=== PATIENT | male | born 1940 | race African-American/Black ===

== ENCOUNTER 2016-10-10 14:56 | Emergency (ER) | payer OTHER ==
[~2016-10-10] VITALS: Ht 175.3 cm; Wt 56.0 kg
--- NOTE | 2016-10-10 15:14 | ED DYSPNEA/ASTHMA COMPLAINT ---
History of Present Illness General Chief Complaint: General Adult Stated Complaint: WEAKNESS,DIZZINESS,NOT BREATHING WELL Source: patient, family Exam Limitations: no limitations Vital Signs & Intake/Output Vital Signs & Intake/Output Vital Signs Date Time Temp Pulse Resp B/P B/P Pulse O2 O2 Flow FiO2 Mean Ox Delivery Rate 10/10 1804 57 18 189/88 100 Room Air 10/10 1800 98 Room Air Room Air 10/10 1507 98.2 60 15 137/77 98 Room Air Room Air Allergies Coded Allergies: No Known Allergies (10/10/16) Reconcile Medications Albuterol Sulfate (Ventolin Hfa) 90 MCG HFA.AER.AD 2 PUF INH Q4-6 PRN PRN SHORTNESS OF BREATH Aspirin (Ecotrin*) 81 MG TABLET.DR 1 TAB PO DAILY HEART/BLOOD (Reported) Bisoprolol Fumarate 5 MG TABLET 0.5 TAB PO DAILY UNKNOWN (Reported) Digoxin 250 MCG TABLET 0.25 TAB PO DAILY HEART (Reported) Furosemide (Lasix) 40 MG TABLET 1 TAB PO TID DIURETIC (Reported) Lisinopril 5 MG TABLET 1 TAB PO QPM BP (Reported) Metformin HCl 500 MG TABLET 1 TAB PO BID DM (Reported) Triage Note: PT TO TRIAGE WITH WEAKNESS AND TROUBLE BREATHING. PT HAS BEEN SLEEPING ALOT PER . PT DENIES PAIN, DENIES FEVERS. DENIES COUGH CURRENTLY BUT DID A WEEK AGO. SKIN WARM AND DRY. Triage Nurses Notes Reviewed? yes Onset: Gradual Duration: getting worse Timing: recent history Severity: moderate Activities at Onset: activity HPI: Patient is a 76-year-old male with a past medical history of CHF currently taking furosemide 3 times a day 40 mg, HTN, DMII, BLINDNESS who presents to emergency room with for concerns of dyspnea chills and shortness of breath. Patient in May was admitted for one day and [facility] for concerns of exacerbation of CHF however patient has been in the [place] for a few months now and which patient's residence he is in [place] however patient currently IS IN [place] visiting a family member for a surgical procedure. Patient states the last 2 days he's been complaining of shortness of breath and dyspnea on exertion with minimal physical activity. Patient does state that 2 weeks ago he had a cough, nonproductive however this has resolved. Patient has no fevers. Patient denies any chest pain hemoptysis arm pain jaw pain nausea vomiting leg swelling or weight gain. (BOOGIE GRECO) Past History Medical History Any Pertinent Medical History? see below for history Cardiovascular: CHF, hypertension Endocrine: diabetes Surgical History Surgical History: non-contributory Family History Hx Contributory? No (BOOGIE GRECO) Review of Systems Review of Systems Constitutional: Reports: see HPI. Denies: fever. EENTM: Reports: no symptoms. Respiratory: Reports: see HPI, short of breath. Denies: cough, hemoptysis, sputum production , stridor. Cardiovascular: Denies: chest pain, palpitations, peripheral edema. GI: Reports: no symptoms. Genitourinary: Reports: no symptoms. Musculoskeletal: Reports: no symptoms. Skin: Reports: no symptoms. Neurological/Psychological: Reports: no symptoms. Hematologic/Endocrine: Reports: no symptoms. Immunologic/Allergic: Reports: no symptoms. All Other Systems: Reviewed and Negative (BOOGIE GRECO) Physical Exam Physical Exam General Appearance: no apparent distress, alert, comfortable Head: atraumatic Ears, Nose, Throat: normal pharynx Neck: normal inspection Respiratory: chest non-tender, no respiratory distress, quiet respiration, decreased breath sounds Cardiovascular: regular rate/rhythm Peripheral Pulses: 2+ radial (R), 2+ radial (L) Gastrointestinal: normal bowel sounds, soft, non-tender Extremities: normal inspection, normal capillary refill, normal range of motion, no edema Neurologic/Psych: no motor/sensory deficits, awake, alert, oriented x 3 Skin: intact, normal color, warm/dry Core Measures ACS in differential dx? Yes Severe Sepsis Present: No Septic Shock Present: No (BOOGIE GRECO) Progress Differential Diagnosis: asthma, AMI, bronchitis, costochondritis, CHF, COPD, musculoskeletal pain, pericarditis, pulmonary embolism, pneumonia, pneumothorax, rib fracture, unstable angina Plan of Care: Orders Procedure Date/time Status D-DIMER 10/10 1531 Complete Telemetry/Heat Set Operator 10/10 1527 Active TROPONIN LEVEL 10/10 1527 Complete DIGOXIN 10/10 1527 Complete COMPREHENSIVE METABOLIC PANEL 10/10 1527 Complete CBC WITHOUT DIFFERENTIAL 10/10 1527 Complete B-TYPE NATRIURETIC PEP (BNP) 10/10 152 Complete EKG 10/10 1514 Active Laboratory Tests 10/10/16 1539: Anion Gap 10, Estimated GFR 59 L, BUN/Creatinine Ratio 8.3, Glucose 171 H, Calcium 8.9, Total Bilirubin 0.4, AST 25, ALT 40, Alkaline Phosphatase 33, Troponin I < 0.01, Lqg-[id number]-Kznrzaduspj Pept 1510 H, Total Protein 6.4, Albumin 3.6, Globulin 2.8, Albumin/Globulin Ratio 1.3, CBC w Diff NO MAN DIFF REQ, RBC 3.46 L, MCV 75.9 L, MCH 23.9 L, RDW 14.8 H, MPV 8.6, Gran % 51.6, Lymphocytes % 41.6, Monocytes % 3.4, Eosinophils % 3.3, Basophils % 0.1, Absolute Granulocytes 4.4, Absolute Lymphocytes 3.6 H, Absolute Monocytes 0.3, Absolute Eosinophils 0.3, Absolute Basophils 0, PUBS MCHC 31.5 L, Digoxin 0.5 L 10/10/16 1531: D-Dimer 509 H Patient on initial examination was resting comfortably at bedside no respiratory distress and patient denies any chest pain no concern of lower extremity edema Patient's blood work was essentially unremarkable however d-dimer was mildly elevated which a CT angiogram will be performed for rule out pulmonary embolism. Patient currently is resting comfortably Patient was noted to ambulate under my supervision with normal steady gait oxygenation room air started 97% and and after walking decreased to 95% no respiratory distress observed patient tolerated well 10/10/2016 5:36:47 PM again is resting comfortably at bedside no apparent distress Patient had negative results or concerns of pulmonary embolism after CT angiogram. Patient will be given an inhaler for concerns of mild emphysema noted on CT scan. Patient upon discharge has no complaints Discussed disposition plan with Dr. Carrasco who agrees (VIKKI SHERIDAN,BOOGIE) Diagnostic Imaging: Viewed by Me: Radiology Read, CT Scan. Radiology Impression: SEE COMMENTS Initial ED EKG: normal intervals, normal p-waves, 62 BPM, NSR Comments: PATIENT: JANA BUCRIAGA PRESENT AGE: 76 PATIENT ACCOUNT NO: [id number] : 41 LOCATION: [facility] ORDERING PHYSICIAN: BOOGIE SHERIDAN SERVICE DATE: 10/10/16 EXAM TYPE: CAT - CTA CHEST-PULMONARY EMBOLISM EXAMINATION: CT ANGIOGRAM OF THE CHEST WITH AND WITHOUT CONTRAST (CT PULMONARY ANGIOGRAM FOR PE) CLINICAL INFORMATION: Shortness of breath, dyspnea on exertion. Elevated D-dimer. COMPARISON: Chest radiographs done earlier the same day. TECHNIQUE: Prior to contrast administration, noncontrast localization images were obtained. Subsequently, multidetector volumetric imaging was performed from the thoracic inlet to below the diaphragms following the administration of 120 mL Optiray 350 intravenous contrast. No contrast reaction reported. Sagittal, coronal, and MIP oblique sagittal reformatted images were obtained on the CT workstation, uploaded to PACS, and reviewed. Total exam dose-length product 318.18 mGy-cm. FINDINGS: QUALITY OF STUDY/CONTRAST BOLUS: Satisfactory. PULMONARY ARTERIES: No central or segmental pulmonary emboli. THORACIC AORTA: No aneurysm or dissection. Atherosclerotic calcifications throughout the thoracic aorta. LUNG: No focal consolidation, nodules or masses. Mild bilateral emphysematous changes. PLEURA: No pleural effusion or pneumothorax. MEDIASTINUM: Normal heart size. No pericardial effusion. No hilar or mediastinal lymphadenopathy. No evidence of septal bowing or right heart strain. CHEST WALL/AXILLA: No axillary or internal mammary lymphadenopathy. OSSEOUS STRUCTURES: No acute or suspicious osseous abnormality. UPPER ABDOMEN: Unremarkable. There is reflux of contrast into the hepatic veins, which could suggest elevating right heart pressures. IMPRESSION: 1. No central or segmental pulmonary emboli. 2. Diffuse atherosclerotic calcifications throughout the thoracic aorta. 3. Reflux of contrast into the hepatic veins, which could suggest elevated right heart pressures. 4. Mild bilateral emphysematous changes. VTE: negative PATIENT: JANA BURCIAGA PRESENT AGE: 76 PATIENT ACCOUNT NO: [id number] : 41 LOCATION: [facility] ORDERING PHYSICIAN: BOOGIE SHERIDAN SERVICE DATE: 10/10/16 EXAM TYPE: RAD - XRY-CHEST XRAY, PA AND LATERAL EXAMINATION: XR CHEST CLINICAL INFORMATION: Shortness of breath. Dyspnea on exertion. Reported history of congestive heart failure. COMPARISON: No relevant prior studies are available for comparison. TECHNIQUE: 2 views of the chest were obtained. FINDINGS: No airspace consolidation. No pleural effusion or pneumothorax. No cardiomediastinal silhouette enlargement. Mild degenerative changes within the visualized thoracic spine and bilateral glenohumeral joints. IMPRESSION: Clear lungs. DICTATED BY: FARNAZ VILLAREAL MD DATE/TIME DICTATED:10/10/161556 SUPERVISOR [employer]INTING:TAYLOR DATE/TIME TRANSCRIBED:10/10/161556 (BOOGIE GRECO) Departure Departure Disposition: HOME OR SELF CARE Condition: Stable Clinical Impression Primary Impression: Dyspnea Additional Instructions: As discussed continue home medications as directed except that you should discontinue temporarily using metformin for the next 2 days then re-continue on Tuesday. Begin the prescription of Ventolin for shortness of breath. If symptoms worsen return to emergency room. When YOU return to [place] follow -up with your primary care doctor and please provide them with all reports provided to the emergency room. Departure Forms: Customer Survey General Discharge Information Prescriptions: Current Visit Scripts Albuterol Sulfate (Ventolin Hfa) 2 PUF INH Q4-6 PRN PRN SHORTNESS OF BREATH #1 INHAL (BOOGIE GRECO) PA/MANUFACTURING PROJECT ENGINEER Co-Sign Statement Statement: ED Attending supervision documentation- [X] I saw and evaluated the patient. I have also reviewed all the pertinent lab results and diagnostic results. I agree with the findings and the plan of care as documented in the PA's/MANUFACTURING PROJECT ENGINEER's documentation. [X] I have reviewed the ED Record and agree with the PA's/MANUFACTURING PROJECT ENGINEER's documentation. [] Additions or exceptions (if any) to the PAs/MANUFACTURING PROJECT ENGINEER's note and plan are summarized below: [] (RAHAT NATH,ELVIRA Chan) Critical Care Note Critical Care Note Critical Care Time: non-applicable (BOOGIE GRECO)
[2016-10-10 16:02] LABS: ABSOLUTE BASOPHIL COUNT 0 /CUMM (0.0-0.2); ABSOLUTE EOSINOPHIL COUNT 0.3 /CUMM (0.0-0.7); ABSOLUTE GRANULOCYTE CT 4.4 /CUMM (1.4-6.5); ABSOLUTE LYMPH COUNT 3.6 /CUMM (1.2-3.4); ABSOLUTE MONOCYTE COUNT 0.3 /CUMM (0.10-0.60); BASOPHIL % 0.1 % (0.0-2.0); EOSINOPHIL % 3.3 % (0-5); GRANULOCYTE % 51.6 % (42.2-75.2); HEMATOCRIT 26.2 % (42-52); MEAN CORPUSCULAR HGB 23.9 PG (27.0-31.0); MEAN CORPUSCULAR HGB CONC 31.5 G/DL (33.0-37.0); MEAN CORPUSCULAR VOLUME 75.9 FL (80.0-94.0); MEAN PLATELET VOLUME 8.6 FL (7.4-10.4); PLATELET COUNT 246 /CUMM (130-400); RBC DISTRIBUTION WIDTH 14.8 % (11.5-14.5); RED BLOOD CELL CT 3.46 /CUMM (4.70-6.10); WHITE BLOOD CELL COUNT 8.6 /CUMM (4.8-10.8)
--- NOTE | 2016-10-10 16:23 | RADIOLOGY REPORT ---
EXAMINATION: XR CHEST CLINICAL INFORMATION: Shortness of breath. Dyspnea on exertion. Reported history of congestive heart failure. COMPARISON: No relevant prior studies are available for comparison. TECHNIQUE: 2 views of the chest were obtained. FINDINGS: No airspace consolidation. No pleural effusion or pneumothorax. No cardiomediastinal silhouette enlargement. Mild degenerative changes within the visualized thoracic spine and bilateral glenohumeral joints. IMPRESSION: Clear lungs.
[2016-10-10] MEDS ORDERED: LASIX40 M1 PO (16:59)
[2016-10-10] MEDS ORDERED: LISINOPRIL5 M1 PO (17:00)
[2016-10-10] MEDS ORDERED: BISOPROLOL FUMAR5 M1 PO (17:01)
[2016-10-10] MEDS ORDERED: DIGOXIN250 MCG PO (17:03)
[2016-10-10] MEDS ORDERED: METFORMIN HCL500 M3 PO (17:03)
[2016-10-10] MEDS ORDERED: ASPIRIN EC81 M1 PO (17:03)
--- NOTE | 2016-10-10 17:58 | CT SCAN REPORT ---
EXAMINATION: CT ANGIOGRAM OF THE CHEST WITH AND WITHOUT CONTRAST (CT PULMONARY ANGIOGRAM FOR PE) CLINICAL INFORMATION: Shortness of breath, dyspnea on exertion. Elevated D-dimer. COMPARISON: Chest radiographs done earlier the same day. TECHNIQUE: Prior to contrast administration, noncontrast localization images were obtained. Subsequently, multidetector volumetric imaging was performed from the thoracic inlet to below the diaphragms following the administration of 120 mL Optiray 350 intravenous contrast. No contrast reaction reported. Sagittal, coronal, and MIP oblique sagittal reformatted images were obtained on the CT workstation, uploaded to PACS, and reviewed. Total exam dose-length product 318.18 mGy-cm. FINDINGS: QUALITY OF STUDY/CONTRAST BOLUS: Satisfactory. PULMONARY ARTERIES: No central or segmental pulmonary emboli. THORACIC AORTA: No aneurysm or dissection. Atherosclerotic calcifications throughout the thoracic aorta. LUNG: No focal consolidation, nodules or masses. Mild bilateral emphysematous changes. PLEURA: No pleural effusion or pneumothorax. MEDIASTINUM: Normal heart size. No pericardial effusion. No hilar or mediastinal lymphadenopathy. No evidence of septal bowing or right heart strain. CHEST WALL/AXILLA: No axillary or internal mammary lymphadenopathy. OSSEOUS STRUCTURES: No acute or suspicious osseous abnormality. UPPER ABDOMEN: Unremarkable. There is reflux of contrast into the hepatic veins, which could suggest elevating right heart pressures. IMPRESSION: 1. No central or segmental pulmonary emboli. 2. Diffuse atherosclerotic calcifications throughout the thoracic aorta. 3. Reflux of contrast into the hepatic veins, which could suggest elevated right heart pressures. 4. Mild bilateral emphysematous changes. VTE: negative
[2016-10-10 18:04] VITALS: BP 189/88
[2016-10-10] MEDS ORDERED: VENTOLIN HFA18 GM INH (18:11)
== END 2016-10-10 19:13 ==
LOC: ERH 14:56
PROVIDERS: Physician Assistant
DX: R06.00 Dyspnea, unspecified (principal); R42 Dizziness and giddiness
CPT/HCPCS: 93005; 93010